=== PATIENT | female | born 1990 | race American Indian/Alaskan Native ===

== ENCOUNTER 2017-09-22 12:16 | Emergency (ER) | payer MEDICAID ==
[2017-09-22 12:22] VITALS: BP 142/83
[2017-09-22] MEDS ORDERED: TORADOL IM ONE (13:08)
--- NOTE | 2017-09-22 13:18 | Emergency Department Report ---
ED Back Pain/Injury HPI - General Chief Complaint: Back Pain/Injury Stated Complaint: BACK PAIN Time Seen by Provider: 09/22/17 13:00 Source: patient Limitations: No Limitations - History of Present Illness Initial Comments: This is a 27-year-old female nontoxic, well nourished in appearance, no acute signs of distress presents to the ED with c/o of right sided upper back pain. 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 Patient stated that symptoms worsened today. Patient denies any radiation of pain. Patient denies any trauma. Denies any bladder or bowel instability. Denies any fever, chills, nausea, abdominal pain, vomiting, headache, stiff neck, chest pain or shortness of breath. Patient denies any urinary symptoms. Patient denies any numbness or tingling. Denies any allergies. MD Complaint: back pain -: days(s) (1) Similar Symptoms Previously: Yes Place: work Radiation: none Severity: mild Severity scale (0 -10): 8 Quality: aching Consistency: constant Improves With: immobilization Worsens With: movement Context: while lifting, turning/twisting Associated Symptoms: denies other symptoms. denies: confusion, weakness, chest pain, numbness, difficulty walking, cough, difficulty urinating, diaphoresis, incontinence, fever/chills, constipation, headaches, abdominal pain, loss of appetite, malaise, nausea/vomiting, rash, seizure, shortness of breath, syncope - Related Data Previous Rx's Medication Instructions Recorded Last Taken Type Cyclobenzaprine [Flexeril] 10 mg PO BID PRN #10 tablet 09/22/17 Unknown Rx Ibuprofen [Motrin] 600 mg PO Q8H PRN #30 tablet 09/22/17 Unknown Rx Allergies Allergy/AdvReac Type Severity Reaction Status Date / Time No Known Allergies Allergy Unverified 09/22/17 12:22 ED Review of Systems ROS: Stated complaint: BACK PAIN Other details as noted in HPI Constitutional: denies: chills, fever Eyes: denies: eye pain, eye discharge, vision change ENT: denies: ear pain, throat pain Respiratory: denies: cough, shortness of breath, wheezing Cardiovascular: denies: chest pain, palpitations Endocrine: no symptoms reported Gastrointestinal: denies: abdominal pain, nausea, diarrhea Genitourinary: denies: urgency, dysuria, discharge Musculoskeletal: back pain, arthralgia. denies: joint swelling Skin: denies: rash, lesions Neurological: denies: headache, weakness, paresthesias Psychiatric: denies: anxiety, depression Hematological/Lymphatic: denies: easy bleeding, easy bruising ED Past Medical Hx - Past Medical History Previous Medical History?: No - Surgical History Past Surgical History?: No - Social History Smoking Status: Never Smoker Substance Use Type: None - Medications Home Medications: Home Medications Medication Instructions Recorded Confirmed Last Taken Type Cyclobenzaprine [Flexeril] 10 mg PO BID PRN #10 tablet 09/22/17 Unknown Rx Ibuprofen [Motrin] 600 mg PO Q8H PRN #30 tablet 09/22/17 Unknown Rx ED Physical Exam - General Limitations: No Limitations General appearance: alert, in no apparent distress - Head Head exam: Present: atraumatic, normocephalic - Eye Eye exam: Present: normal appearance Pupils: Present: normal accommodation - ENT ENT exam: Present: normal exam, mucous membranes moist - Neck Neck exam: Present: normal inspection, full ROM. Absent: tenderness, meningismus, lymphadenopathy - Respiratory Respiratory exam: Present: normal lung sounds bilaterally. Absent: respiratory distress, wheezes, rales, rhonchi, stridor, chest wall tenderness, accessory muscle use, decreased breath sounds, prolonged expiratory - Cardiovascular Cardiovascular Exam: Present: regular rate, normal rhythm, normal heart sounds. Absent: irregular rhythm, systolic murmur, diastolic murmur, rubs, gallop - GI/Abdominal GI/Abdominal exam: Present: soft, normal bowel sounds. Absent: distended, tenderness, guarding, rebound, rigid, diminished bowel sounds - Rectal Rectal exam: Present: deferred - Extremities Exam Extremities exam: Present: normal inspection, full ROM, normal capillary refill. Absent: tenderness - Back Exam Back exam: Present: normal inspection, full ROM, paraspinal tenderness (right sided paracervical region). Absent: tenderness, CVA tenderness (R), CVA tenderness (L), muscle spasm, vertebral tenderness, rash noted - Expanded Back Exam Expanded Back exam: Absent: saddle anesthesia Back exam: Negative Straight Leg Raising: Left, Right - Neurological Exam Neurological exam: Present: alert, oriented X3, normal gait - Psychiatric Psychiatric exam: Present: normal affect, normal mood - Skin Skin exam: Present: warm, dry, intact, normal color. Absent: rash ED Course Vital Signs 09/22/17 12:19 Temperature 98.2 F Pulse Rate 58 L Respiratory 18 Rate Blood Pressure 142/83 O2 Sat by Pulse 97 Oximetry - Reevaluation(s) Reevaluation #1: 09/22/17 13:17 Patient is speaking in full sentences with no signs of distress noted. ED Medical Decision Making - Medical Decision Making This is a 27-year-old female that presents with right cervical muscle strain. Patient is stable was examined by me. There is no spinal tenderness. There is no cauda equina syndrome during examination. No bladder or bowel instability. Patient received Toradol 60 mg IM in the ED which preceded his symptoms has resolved and subsided. Patient is discharged with muscle relaxant and Motrin. Patient was instructed not to operate any machinery while taking muscle relaxant as they cause her drowsiness. Patient was referred to Follow-up with a primary care doctor in 3-5 days or if symptoms worsen and continue return to emergency room as soon as possible. At time of discharge, the patient does not seem toxic or ill in appearance. No acute signs of distress noted. Patient agrees to discharge treatment plan of care. No further questions noted by the patient. This chart is dictated with using [employer] Dictation Program Critical care attestation.: If time is entered above; I have spent that time in minutes in the direct care of this critically ill patient, excluding procedure time. ED Disposition Clinical Impression: Strain of cervical portion of right trapezius muscle Disposition: [id number] TO HOME OR SELFCARE Is pt being admited?: No Does the pt Need Aspirin: No Condition: Stable Instructions: Muscle Strain (ED), Cyclobenzaprine (By mouth), Ibuprofen (By mouth) Additional Instructions: Follow-up with a primary care doctor in 3-5 days or if symptoms worsen and continue return to emergency room as soon as possible. Prescriptions: Cyclobenzaprine [Flexeril] 10 mg PO BID PRN #10 tablet PRN Reason: Muscle Spasm Ibuprofen [Motrin] 600 mg PO Q8H PRN #30 tablet PRN Reason: Pain Referrals: PRIMARY CARE, [Primary Care Provider] - 3-5 Days ARIELA NEWELL MD [Staff Physician] - 3-5 Days [facility] [Outside] - 3-5 Days [facility] [Outside] - 3-5 Days Forms: Work/School Release Form(ED)
== END 2017-09-22 13:30 | disposition home or self-care (01) ==
LOC: ED 12:16
DX: S16.1XXA Strain of muscle, fascia and tendon at neck level, initial encounter (principal); X58.XXXA Exposure to other specified factors, initial encounter; Y93.89 Activity, other specified; Y99.8 Other external cause status; Y92.89 Other specified places as the place of occurrence of the external cause
CPT/HCPCS: 96372; 99282; J1885

== ENCOUNTER 2017-09-25 14:26 | Emergency (ER) | payer MEDICAID ==
[2017-09-25 15:28] VITALS: BP 117/76
== END 2017-09-25 16:27 | disposition left against medical advice (07) ==
LOC: ED 14:26
DX: M54.9 Dorsalgia, unspecified (principal); Z53.21 Procedure and treatment not carried out due to patient leaving prior to being seen by health care provider

== ENCOUNTER 2018-10-31 20:32 | Emergency (ER) | payer MEDICAID ==
--- NOTE | 2018-10-31 21:50 | Event Note ---
ED Screening Note ED Screening Note: pt presents with N/V/D that began two days ago denies any bad food or new foods no recent abx no water from a different source abd cramping no urinary sx LNMP: three weeks ago no PMHx no allergies to meds non smoker non drinker no drug use This initial assessment/diagnostic orders/clinical plan/treatment(s) is/are subject to change based on patients health status, clinical progression and re- assessment by fellow clinical providers in the ED. Further treatment and workup at subsequent clinical providers discretion. Patient/guardian urged not to elope from the ED as their condition may be serious if not clinically assessed and managed. Initial orders include: labs, UA, urine preg
[2018-10-31 21:51] VITALS: BP 122/66
[2018-10-31 22:32] LABS: Basophils % (Auto) 0.2 % (0.0-1.8); Eosinophils # (Auto) 0.2 K/mm3 (0.0-0.4); Eosinophils % (Auto) 1.8 % (0.0-4.3); Lymphocytes # (Auto) 0.9 K/mm3 (1.2-5.4); Lymphocytes % (Auto) 9.8 % (13.4-35.0); Mean Corpuscular HGB Conc 33 % (30-34); Mean Corpuscular Volume 89 fl (79-97); Monocytes # (Auto) 0.7 K/mm3 (0.0-0.8); Monocytes % (Auto) 7.2 % (0.0-7.3); Platelet Count 179 K/mm3 (140-440); Red Blood Count 4.05 M/mm3 (3.65-5.03)
[2018-10-31 22:59] LABS: HCG Qualitative,Urine Negative (Negative)
[2018-10-31 23:03] LABS: Bilirubin,Urine NEG (Negative); Blood,Urine NEG (Negative); Color,Urine Yellow (Yellow); Mucus,Urine 2+ /HPF; Protein,Urine <15 mg/dL mg/dL (Negative)
[2018-10-31 23:08] LABS: Alanine Aminotransferase 11 units/L (7-56); Albumin 4.1 g/dL (3.9-5); BUN/Creatinine Ratio 12; Blood Urea Nitrogen 11 mg/dL (7-17); Calcium 8.9 mg/dL (8.4-10.2); Hemolysis Index 6
== END 2018-11-01 02:27 | disposition left against medical advice (07) ==
LOC: ED 20:32
DX: R11.2 Nausea with vomiting, unspecified (principal); R19.7 Diarrhea, unspecified; R10.9 Unspecified abdominal pain; Z53.21 Procedure and treatment not carried out due to patient leaving prior to being seen by health care provider
CPT/HCPCS: 36415; 80053; 81001; 81025; 83690; 85025

== ENCOUNTER 2019-05-27 09:32 | Emergency (ER) | payer MEDICAID ==
[2019-05-27 09:58] VITALS: BP 136/71
[2019-05-27 10:53] LABS: Bacteria,Urine 1+ /HPF (Negative); Bilirubin,Urine NEG (Negative); Blood,Urine NEG (Negative); Color,Urine Yellow (Yellow); Mucus,Urine FEW /HPF; Protein,Urine <15 mg/dL mg/dL (Negative); Urobilinogen,Urine < 2.0 mg/dL (<2.0)
[2019-05-27] MEDS ORDERED: ACETAMINOPHEN 500 MG TAB PO ONE (13:05)
[2019-05-27 14:25] LABS: Basophils % (Auto) 0.4 % (0.0-1.8); Eosinophils % (Auto) 0.5 % (0.0-4.3); Hematocrit 34.6 % (30.3-42.9); Hemoglobin 11.6 gm/dl (10.1-14.3); Lymphocytes # (Auto) 2.4 K/mm3 (1.2-5.4); Lymphocytes % (Auto) 29.4 % (13.4-35.0); Mean Corpuscular HGB Conc 34 % (30-34); Mean Corpuscular Volume 88 fl (79-97); Monocytes # (Auto) 0.6 K/mm3 (0.0-0.8); Monocytes % (Auto) 6.9 % (0.0-7.3); Platelet Count 154 K/mm3 (140-440); Red Blood Count 3.95 M/mm3 (3.65-5.03)
--- NOTE | 2019-05-27 14:43 | Emergency Department Report ---
ED HPI - General Chief complaint: Abdominal Pain Stated complaint: /CRAMPING/DIZZY Time Seen by Provider: 05/27/19 13:03 Source: patient Mode of arrival: Ambulatory Limitations: No Limitations - History of Present Illness Initial comments: This is a 28-year-old female nontoxic, well nourished in appearance, no acute signs of distress presents to the ED with c/o of pelvic cramping x2 days. Patient stated she is about 6 weeks and does follow [employer]. Patient also stated had some dizziness but has resolved. Stated felt dizzy this morning when she wake up but resolved now. Patient denies any vaginal bleeding. Patient denies any abdominal pain. Patient denies any vaginal discharge or foul odor. Patient denies any nausea, vomiting, chest pain, shortness of breathe, fever, chills, headache, stiff neck, numbness, tingling. Patient denies any urinary symptoms. Patient denies any allergies or PMH. MD Complaint: abdominal pain -: days(s) (2) Location: pelvis Radiation: none Severity: mild Severity scale (0 -10): 3 Quality: cramping, aching Consistency: constant Improves with: none Worsens with: none Associated symptoms: denies: nausea/vomiting, vaginal bleeding, vaginal discharge, abdominal pain, dysuria, headache, vision changes, malaise, d ysparuenia, rash, seizure, shortness of breath, syncope, weakness Vaginal bleeding: none :: Yes Number of weeks : 7 - Related Data Previous Rx's Medication Instructions Recorded Last Taken Type Cyclobenzaprine [Flexeril] 10 mg PO BID PRN #10 tablet 09/22/17 Unknown Rx Ibuprofen [Motrin] 600 mg PO Q8H PRN #30 tablet 09/22/17 Unknown Rx Cyclobenzaprine [Flexeril] 10 mg PO TID PRN #14 tablet 04/17/18 Unknown Rx HYDROcodone/APAP 5-325 [[place] 1 - 2 each PO Q6HR PRN #14 tablet 04/17/18 Unknown Rx 5/325] Ibuprofen [Motrin 800 MG tab] 800 mg PO Q8HR PRN #20 tablet 04/17/18 Unknown Rx Amoxicillin [Amoxicillin TAB] 875 mg PO BID #20 tablet 01/11/19 Unknown Rx Ibuprofen [Motrin] 600 mg PO Q8H PRN #20 tablet 01/11/19 Unknown Rx Nystas/Diphen/Xyl Visc/Mylanta 15 ml MM Q6H PRN 5 Days ml 01/11/19 Unknown Rx [Magic Mouthwash] Nitrofurantoin Blaine/M-Cryst 100 mg PO Q12HR #14 capsule 05/27/19 Unknown Rx [Macrobid CAP] Allergies Allergy/AdvReac Type Severity Reaction Status Date / Time No Known Allergies Allergy Unverified 10/31/18 21:56 ED Review of Systems ROS: Stated complaint: /CRAMPING/DIZZY Other details as noted in HPI Constitutional: denies: chills, fever Eyes: denies: eye pain, eye discharge, vision change ENT: denies: ear pain, throat pain, congestion Respiratory: denies: cough, shortness of breath, wheezing Cardiovascular: denies: chest pain, palpitations Endocrine: no symptoms reported Gastrointestinal: denies: abdominal pain, nausea, diarrhea Genitourinary: denies: urgency, dysuria, discharge Musculoskeletal: denies: back pain, joint swelling, arthralgia Skin: denies: rash, lesions Neurological: denies: headache, weakness, paresthesias Psychiatric: denies: anxiety, depression Hematological/Lymphatic: denies: easy bleeding, easy bruising ED Past Medical Hx - Past Medical History Previous Medical History?: No Additional medical history: Back injury - Surgical History Past Surgical History?: No - Social History Smoking Status: Never Smoker Substance Use Type: None - Medications Home Medications: Home Medications Medication Instructions Recorded Confirmed Last Taken Type Cyclobenzaprine [Flexeril] 10 mg PO BID PRN #10 tablet 09/22/17 Unknown Rx Ibuprofen [Motrin] 600 mg PO Q8H PRN #30 tablet 09/22/17 Unknown Rx Cyclobenzaprine [Flexeril] 10 mg PO TID PRN #14 tablet 04/17/18 Unknown Rx HYDROcodone/APAP 5-325 [[place] 1 - 2 each PO Q6HR PRN #14 tablet 04/17/18 Unknown Rx 5/325] Ibuprofen [Motrin 800 MG tab] 800 mg PO Q8HR PRN #20 tablet 04/17/18 Unknown Rx Amoxicillin [Amoxicillin TAB] 875 mg PO BID #20 tablet 01/11/19 Unknown Rx Ibuprofen [Motrin] 600 mg PO Q8H PRN #20 tablet 01/11/19 Unknown Rx Nystas/Diphen/Xyl Visc/Mylanta 15 ml MM Q6H PRN 5 Days ml 01/11/19 Unknown Rx [Magic Mouthwash] Nitrofurantoin Blaine/M-Cryst 100 mg PO Q12HR #14 capsule 05/27/19 Unknown Rx [Macrobid CAP] ED Physical Exam - General Limitations: No Limitations General appearance: alert, in no apparent distress - Head Head exam: Present: atraumatic, normocephalic - Eye Eye exam: Present: normal appearance - Neck Neck exam: Present: normal inspection, full ROM. Absent: tenderness, meningismus, lymphadenopathy - Respiratory Respiratory exam: Present: normal lung sounds bilaterally. Absent: respiratory distress, wheezes, rales, rhonchi, stridor, chest wall tenderness, accessory muscle use, decreased breath sounds, prolonged expiratory - Cardiovascular Cardiovascular Exam: Present: regular rate, normal rhythm, normal heart sounds. Absent: bradycardia, tachycardia, irregular rhythm, systolic murmur, diastolic murmur, rubs, gallop - GI/Abdominal GI/Abdominal exam: Present: soft, normal bowel sounds. Absent: distended, tenderness, guarding, rebound, rigid, diminished bowel sounds - Extremities Exam Extremities exam: Present: normal inspection, full ROM - Back Exam Back exam: Present: normal inspection, full ROM. Absent: tenderness, CVA tenderness (R), CVA tenderness (L), muscle spasm, paraspinal tenderness, vertebral tenderness, rash noted - Neurological Exam Neurological exam: Present: alert, oriented X3, normal gait - Psychiatric Psychiatric exam: Present: normal affect, normal mood - Skin Skin exam: Present: warm, dry, intact, normal color. Absent: rash ED Course Vital Signs 05/27/19 09:57 Temperature 98.1 F Pulse Rate 83 Respiratory 18 Rate Blood Pressure 136/71 [Right] O2 Sat by Pulse 100 Oximetry - Reevaluation(s) Reevaluation #1: 05/27/19 15:12 Patient is speaking in full sentences with no signs of distress noted. ED Medical Decision Making - Lab Data Result diagrams: 05/27/19 13:30 05/27/19 13:30 - Medical Decision Making This is a 28-year-old female that presents with pelvic pain. Patient is stable and was examined by me. There is no abdominal tenderness. Negative signs of symptoms of appendicitis. Labs obtained. UA obtained. OB ultrasound obtained and dictated by the radiologist. Patient is notified of the report with no questions noted by the patient. Vital signs are stable prior to discharge. Patient received medical treatment in the ED which patient stated symptoms has resovled and subsided. Urine shows urinary tract infection. We'll treat with Bactrim. Patient was notified of strict precatuions of appendictis symptoms and to return to the ED if symptoms occurs as soon as possible. Patient was also instructed to Follow-up with a [employer] doctor in 3-5 days or if symptoms worsen and continue return to emergency room as soon as possible. At time of discharge, the patient does not seem toxic or ill in appearance. No acute signs of distress noted. Patient agrees to discharge treatment plan of care. No further questions noted by the patient. Critical care attestation.: If time is entered above; I have spent that time in minutes in the direct care of this critically ill patient, excluding procedure time. ED Disposition Clinical Impression: Pelvic pain during UTI (urinary tract infection) Qualifiers: Urinary tract infection type: acute cystitis Hematuria presence: without hematuria Qualified Code(s): N30.00 - Acute cystitis without hematuria Disposition: - TO HOME OR SELFCARE Is pt being admited?: No Does the pt Need Aspirin: No Condition: Stable Instructions: (ED), Urinary Tract Infection in Women (ED) Additional Instructions: Follow-up with a primary care doctor in 3-5 days or if symptoms worsen and continue return to emergency room as soon as possible. Prescriptions: Nitrofurantoin Blaine/M-Cryst [Macrobid CAP] 100 mg PO Q12HR #14 capsule Referrals: PRIMARY MD DURGA [Primary Care Provider] - 3-5 Days AL FRANCISCO MD [Staff Physician] - 3-5 Days [facility] [Provider Group] - 3-5 Days Forms: Work/School Release Form(ED)
--- NOTE | 2019-05-27 14:47 | Ultrasound Report ---
FIRSTTRIMESTER OBSTETRIC ULTRASOUND HISTORY: Pelvic pain. COMPARISON: None. TECHNIQUE: Routine transabdominal and transvaginal OB ultrasound performed. FINDINGS: Uterus: Mildly enlarged measuring 9.1 x 5.9 x 6.5 cm. Gestational Sac: Well-defined oval shape and intrauterine in location. Yolk Sac: Normal in appearance. Fetus/Embryo: [place]-rump length of 8.9 mm , corresponding to an estimated gestational age of 6 weeks, 6 days. Embryonic/ anatomy is too small for evaluation. Embryonic/ cardiac activity: 133bpm Placenta: Too small for evaluation. Amniotic fluid volume: Subjectively appropriate for gestational age. Ovaries: The right ovary is normal in size and appearance with normal blood flow, measuring 3.0 x 1. 8 x 1.9 cm. The left ovary is normal in size and appearance with normal blood flow, measuring 3.5 x 2.3 x 2.5 cm. A 2.1 cm cyst of the left ovary. Additional findings: A tiny subchorionic bleed measures 1.3 x 0.4 x 0.9 cm. No next asked. Trace free pelvic fluid. IMPRESSION: 1. Single living intrauterine at 6 weeks, 6 days based on crown-rump length measurement. ED C based on crown-rump length measurement is 01/11/2020. 2. A tiny 1.3 cm subchorionic bleed. 3. A 2.1 cm left corpus luteum cyst. Signer Name: Arnie Mckinney MD Signed: 05/27/2019 2:43 PM Workstation Name: [id number]
[2019-05-27 14:49] LABS: BUN/Creatinine Ratio 15; Blood Urea Nitrogen 9 mg/dL (7-17); Calcium 8.7 mg/dL (8.4-10.2); Hemolysis Index 4
== END 2019-05-27 16:23 | disposition home or self-care (01) ==
LOC: ED 09:32
DX: O23.41 Unspecified infection of urinary tract in pregnancy, first trimester (principal); Z79.899 Other long term (current) drug therapy; Z3A.01 Less than 8 weeks gestation of pregnancy
CPT/HCPCS: 36415; 76801; 76817; 80048; 81001; 84702; 85025

== ENCOUNTER 2019-06-12 06:40 | Emergency (ER) | payer MEDICAID ==
[2019-06-12] MEDS ORDERED: SODIUM CHLORIDE 0.9% 1000 ML 1,000 ML IV ONE (07:52)
[2019-06-12] MEDS ORDERED: diphenhydrAMINE 50 MG/ML VIAL IV ONE (07:52)
[2019-06-12] MEDS ORDERED: METOCLOPRAMIDE 10 MG/2 ML INJ IV ONE (07:52)
[2019-06-12] MEDS ORDERED: FAMOTIDINE 20 MG/2 ML INJ IV ONE (07:52)
--- NOTE | 2019-06-12 08:05 | Emergency Department Report ---
ED General Adult HPI - General Chief complaint: Nausea/Vomiting/Diarrhea Stated complaint: VOMITING, CHILLS, & HEADACHE(9 WKS PREG) Time Seen by Provider: 06/12/19 07:38 Source: patient Mode of arrival: Ambulatory Limitations: No Limitations - History of Present Illness Initial comments: Patient is a 21-year-old female who presents emergency room with complaints of nausea and vomiting that began 2 days ago. She states that she is not able to tolerate p.o. intake. Patient states that she is currently 9 weeks . 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 She states that she has tried Phenergan and Zofran without much relief. She denies any dysuria, diarrhea, fever, vaginal discharge, vaginal bleeding, abdominal pain. She states that she does have a slight burning in the throat secondary to vomiting. She denies any past medical history. She denies any allergies to medications. She states her last menstrual cycle was April 07. /P:2/A:0 - Related Data Previous Rx's Medication Instructions Recorded Last Taken Type Cyclobenzaprine [Flexeril] 10 mg PO BID PRN #10 tablet 09/22/17 Unknown Rx Ibuprofen [Motrin] 600 mg PO Q8H PRN #30 tablet 09/22/17 Unknown Rx Cyclobenzaprine [Flexeril] 10 mg PO TID PRN #14 tablet 04/17/18 Unknown Rx HYDROcodone/APAP 5-325 [[place] 1 - 2 each PO Q6HR PRN #14 tablet 04/17/18 Unknown Rx 5/325] Ibuprofen [Motrin 800 MG tab] 800 mg PO Q8HR PRN #20 tablet 04/17/18 Unknown Rx Amoxicillin [Amoxicillin TAB] 875 mg PO BID #20 tablet 01/11/19 Unknown Rx Ibuprofen [Motrin] 600 mg PO Q8H PRN #20 tablet 01/11/19 Unknown Rx Nystas/Diphen/Xyl Visc/Mylanta 15 ml MM Q6H PRN 5 Days ml 01/11/19 Unknown Rx [Magic Mouthwash] Nitrofurantoin Dewitt/M-Cryst 100 mg PO Q12HR #14 capsule 05/27/19 Unknown Rx [Macrobid CAP] Metoclopramide [Reglan] 10 mg PO Q8HR PRN #21 tab 06/12/19 Unknown Rx cephALEXin [Keflex] 500 mg PO BID 7 Days #14 cap 06/12/19 Unknown Rx Allergies Allergy/AdvReac Type Severity Reaction Status Date / Time No Known Allergies Allergy Unverified 10/31/18 21:56 ED Review of Systems ROS: Stated complaint: VOMITING, CHILLS, & HEADACHE(9 WKS PREG) Other details as noted in HPI Comment: All other systems reviewed and negative ED Past Medical Hx - Past Medical History Previous Medical History?: Yes Additional medical history: Back injury - Surgical History Past Surgical History?: Yes Additional Surgical History: c sec X1 - Social History Smoking Status: Former Smoker Substance Use Type: None - Medications Home Medications: Home Medications Medication Instructions Recorded Confirmed Last Taken Type Cyclobenzaprine [Flexeril] 10 mg PO BID PRN #10 tablet 09/22/17 Unknown Rx Ibuprofen [Motrin] 600 mg PO Q8H PRN #30 tablet 09/22/17 Unknown Rx Cyclobenzaprine [Flexeril] 10 mg PO TID PRN #14 tablet 04/17/18 Unknown Rx HYDROcodone/APAP 5-325 [[place]ata 1 - 2 each PO Q6HR PRN #14 tablet 04/17/18 Unknown Rx 5/325] Ibuprofen [Motrin 800 MG tab] 800 mg PO Q8HR PRN #20 tablet 04/17/18 Unknown Rx Amoxicillin [Amoxicillin TAB] 875 mg PO BID #20 tablet 01/11/19 Unknown Rx Ibuprofen [Motrin] 600 mg PO Q8H PRN #20 tablet 01/11/19 Unknown Rx Nystas/Diphen/Xyl Visc/Mylanta 15 ml MM Q6H PRN 5 Days ml 01/11/19 Unknown Rx [Magic Mouthwash] Nitrofurantoin Dewitt/M-Cryst 100 mg PO Q12HR #14 capsule 05/27/19 Unknown Rx [Macrobid CAP] Metoclopramide [Reglan] 10 mg PO Q8HR PRN #21 tab 06/12/19 Unknown Rx cephALEXin [Keflex] 500 mg PO BID 7 Days #14 cap 06/12/19 Unknown Rx ED Physical Exam - General Limitations: No Limitations General appearance: alert, in no apparent distress - Head Head exam: Present: atraumatic, normocephalic - Eye Eye exam: Present: normal appearance - ENT ENT exam: Present: normal orophraynx, mucous membranes moist - Respiratory Respiratory exam: Present: normal lung sounds bilaterally. Absent: respiratory distress, wheezes, rales, rhonchi, stridor, chest wall tenderness, accessory muscle use, decreased breath sounds, prolonged expiratory - Cardiovascular Cardiovascular Exam: Present: regular rate, normal rhythm, normal heart sounds. Absent: systolic murmur, diastolic murmur, rubs, gallop - GI/Abdominal GI/Abdominal exam: Present: soft, normal bowel sounds. Absent: distended, tenderness, guarding, rebound, rigid - Neurological Exam Neurological exam: Present: alert, oriented X3 - Psychiatric Psychiatric exam: Present: normal affect, normal mood - Skin Skin exam: Present: warm, dry, intact ED Course Vital Signs 06/12/19 06/12/19 06:44 09:48 Temperature 98.3 F Pulse Rate 76 70 Respiratory 18 16 Rate Blood Pressure 133/50 Blood Pressure 134/58 [Left] O2 Sat by Pulse 99 99 Oximetry ED Medical Decision Making - Lab Data Result diagrams: 06/12/19 08:33 06/12/19 08:33 Lab Results 06/12/19 06/12/19 06/12/19 Range/Units 08:33 08:33 Unknown WBC 9.5 (4.5-11.0) K/mm3 RBC 4.10 (3.65-5.03) M/mm3 Hgb 12.2 (10.1-14.3) gm/dl Hct 36.1 (30.3-42.9) % MCV 88 (79-97) fl MCH 30 (28-32) pg MCHC 34 (30-34) % RDW 18.1 H (13.2-15.2) % Plt Count 173 (140-440) K/mm3 Lymph % (Auto) 15.8 (13.4-35.0) % [place]itt % (Auto) 4.7 (0.0-7.3) % Eos % (Auto) 0.7 (0.0-4.3) % Baso % (Auto) 0.3 (0.0-1.8) % Lymph # 1.5 (1.2-5.4) K/mm3 Dewitt # 0.4 (0.0-0.8) K/mm3 Eos # 0.1 (0.0-0.4) K/mm3 Baso # 0.0 (0.0-0.1) K/mm3 Seg Neutrophils % 78.5 H (40.0-70.0) % Seg Neutrophils # 7.5 (1.8-7.7) K/mm3 Sodium 137 (137-145) mmol/L Potassium 4.1 (3.6-5.0) mmol/L Chloride 104.5 (98-107) mmol/L Carbon Dioxide 19 L (22-30) mmol/L Anion Gap 18 mmol/L BUN 6 L (7-17) mg/dL Creatinine 0.5 L (0.7-1.2) mg/dL Estimated GFR > 60 ml/min BUN/Creatinine Ratio 12 % Glucose 77 (65-100) mg/dL Calcium 8.5 (8.4-10.2) mg/dL Urine Color Yellow (Yellow) Urine Turbidity Cloudy (Clear) Urine pH 7.0 (5.0-7.0) Ur Specific [place] 1.012 (1.003-1.030) Urine Protein <15 mg/dl (Negative) mg/dL Urine Glucose (UA) Neg (Negative) mg/dL Urine Ketones Neg (Negative) mg/dL Urine Blood Neg (Negative) Urine Nitrite Neg (Negative) Urine Bilirubin Neg (Negative) Urine Urobilinogen < 2.0 (<2.0) mg/dL Ur Leukocyte Esterase Tr (Negative) Urine WBC (Auto) 4.0 (0.0-6.0) /HPF Urine RBC (Auto) 2.0 (0.0-6.0) /HPF U Epithel Cells (Auto) 57.0 H (0-13.0) /HPF Urine Bacteria (Auto) 4+ (Negative) /HPF Amorphous Crystals Few Urine Mucus Few /HPF - Medical Decision Making Patient is a 21-year-old female who presents emergency room with complaints of nausea and vomiting that began 2 days ago. She states that she is not able to tolerate p.o. intake. Patient states that she is currently 9 weeks . 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 She states that she has tried Phenergan and Zofran without much relief. She denies any dysuria, diarrhea, fever, vaginal discharge, vaginal bleeding, abdominal pain. She states that she does have a slight burning in the throat secondary to vomiting. She denies any past medical history. She denies any allergies to medications. She states her last menstrual cycle was April 07. /P:2/A:0. VSS. no abd ttp, no guarding, no rebound, no rigidity. Patient given 1 L IV fluids, Reglan, Benadryl, Pepcid and symptoms improved. Patient had no further episodes of nausea and vomiting while in the ED. Patient was able to tolerate p.o. intake. Labs are normal. UA shows 4+ bacteria and trace leukocyte esterase there are many epithelial cells could be due to contamination, given that patient is and there is bacteria will go ahead and treat patient with Keflex. Patient given prescription for Reglan and Keflex. Advised patient to please take medication as prescribed. Increase your fluid intake. 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 Return to the emergency room for any new or worsening symptoms. - Differential Diagnosis hyperemesis, electrolyte disturbance, UTI, gastritis, morning sickness Critical care attestation.: If time is entered above; I have spent that time in minutes in the direct care of this critically ill patient, excluding procedure time. ED Disposition Clinical Impression: Nausea/vomiting in UTI (urinary tract infection) Qualifiers: Urinary tract infection type: acute cystitis Hematuria presence: without hematuria Qualified Code(s): N30.00 - Acute cystitis without hematuria Disposition: - TO HOME OR SELFCARE Is pt being admited?: No Does the pt Need Aspirin: No Condition: Stable Instructions: Morning Sickness (ED), Urinary Tract Infection in Women (ED) Additional Instructions: please take medication as prescribed. Increase your fluid intake. 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 Return to the emergency room for any new or worsening symptoms. Prescriptions: cephALEXin [Keflex] 500 mg PO BID 7 Days #14 cap Metoclopramide [Reglan] 10 mg PO Q8HR PRN #21 tab PRN Reason: nausea and vomiting Referrals: [facility] [Provider Group] - 2-3 Days Time of Disposition: 09:26 Print Language: FRENCH
[2019-06-12 08:15] LABS: Amorphous Crystals,Urine Few; Bacteria,Urine 4+ /HPF (Negative); Bilirubin,Urine NEG (Negative); Blood,Urine NEG (Negative); Color,Urine Yellow (Yellow); Mucus,Urine FEW /HPF; Protein,Urine <15 mg/dL mg/dL (Negative); Urobilinogen,Urine < 2.0 mg/dL (<2.0)
[2019-06-12 08:47] LABS: Basophils % (Auto) 0.3 % (0.0-1.8); Eosinophils # (Auto) 0.1 K/mm3 (0.0-0.4); Eosinophils % (Auto) 0.7 % (0.0-4.3); Hematocrit 36.1 % (30.3-42.9); Hemoglobin 12.2 gm/dl (10.1-14.3); Lymphocytes # (Auto) 1.5 K/mm3 (1.2-5.4); Lymphocytes % (Auto) 15.8 % (13.4-35.0); Mean Corpuscular HGB Conc 34 % (30-34); Mean Corpuscular Volume 88 fl (79-97); Monocytes # (Auto) 0.4 K/mm3 (0.0-0.8); Monocytes % (Auto) 4.7 % (0.0-7.3); Platelet Count 173 K/mm3 (140-440); Red Cell Distribution Width 18.1 % (13.2-15.2)
[2019-06-12 08:57] LABS: BUN/Creatinine Ratio 12; Blood Urea Nitrogen 6 mg/dL (7-17); Calcium 8.5 mg/dL (8.4-10.2); Hemolysis Index 26
[2019-06-12 09:50] VITALS: BP 134/58
== END 2019-06-12 09:48 | disposition home or self-care (01) ==
LOC: ED 06:40
DX: O21.8 Other vomiting complicating pregnancy (principal); O23.41 Unspecified infection of urinary tract in pregnancy, first trimester; O99.311 Alcohol use complicating pregnancy, first trimester; Z98.890 Other specified postprocedural states; Z79.1 Long term (current) use of non-steroidal anti-inflammatories (NSAID); Z79.899 Other long term (current) drug therapy; Z3A.09 9 weeks gestation of pregnancy
CPT/HCPCS: 36415; 80048; 81001; 85025; 96361; 96374; 96375; 99283; J1200; J2765; J7030